=== PATIENT | female | born 1955 | race Caucasian/White ===

== ENCOUNTER 2022-02-18 09:23 | Outpatient (CLI) | payer MEDICARE, SELFPAY ==
--- NOTE | 2022-02-18 09:29 | ECG_ITS ---
Measurements Intervals [place] Rate: 85 P: 52 NC: 154 QRS: -18 QRSD: 93 T: 12 QT: 347 QTc: 414 Interpretive Statements SINUS RHYTHM LOW QRS VOLTAGE IN PRECORDIAL LEADS [QRS DEFLECTION < 1.0 mV IN CHEST LEADS] NO PREVIOUS ECG AVAILABLE FOR COMPARISON Electronically Signed On 02-18-2022 13:23:37 CONFERENCE PRODUCER by Guerrero Trejo M.D.
== END 2022-02-18 09:24 | disposition home or self-care (01) ==
PROVIDERS: Visit Provider Neurological Surgery
DX: M43.06 Spondylolysis, lumbar region (principal); Z01.818 Encounter for other preprocedural examination
CPT/HCPCS: 36415; 86850; 86900; 86901; 93005

== ENCOUNTER 2022-03-19 01:05 | Day surgery (SDC) | payer MEDICARE, SELFPAY ==
[2022-02-11 14:39] VITALS: BMI 31.8
--- NOTE | 2022-02-11 15:11 | PC.NURSE ---
Addendum entered by Ally Martinez RN 03/13/22 10:54: PT TO ARRIVE AT 0600 ON 03/19/22 FOR SURGERY AT 0800. LAST DOSE OF VITAMINS 03/15/22. Original Note: PRE-OP INSTRUCTIONS, PLEASE READ CAREFULLY Report to the Outpatient Waiting Room, entrance under the green pavilion located off [facility], at time _0600_ on date _02/26/22_. Planned Procedure Time: _0730_. PACK A SMALL OVERNIGHT BAG AND LEAVE IN THE CAR Time changes happen often and if your time is changed the preop area will call you the afternoon before. - You and your visitor will be asked to self-screen and do not enter if you have any COVID symptoms. - Only one visitor is requested with a max of two and NO children visitors are allowed at this time. - The patient visitor may be requested to leave or wait in car when not with patient due to distancing restrictions. - A mask is required within the hospital. -VISITING HOURS 8AM-8PM Patients may have clear liquids (water, carbonated beverages, clear teas, apple juice) until 3 hours prior to surgery (0430 AM) with a maximum of 20 ounces. - No food from midnight until time of surgery Take the following medications with a SIP of water the morning of surgery: _NONE_ Medications to discontinue per ANESTHESIA - _MULTIVITAMIN, OSTEO BI-FLEX, PRESERVISION 3 DAYS PRIOR TO SURGERY, Date to take last dose 02/22/22_ Please no make-up, nail estonian, hairspray, perfume, deodorant, or body powder the day of surgery. No jewelry (including any body piercings) or valuables the day of surgery, leave them at home. Please take a shower or bath the night before, or the morning of, surgery with an antibacterial soap. Wear comfortable, loose fitting clothing. - Jewelry must be removed prior to entering the operating room. Rings and piercings that are not removed may be cut off. - The hospital will not accept responsibility for valuables. - Please leave all valuables, including medications, at home the day of surgery. If you are going home after surgery, a licensed set key driver must drive you home. - NO public transportation without another adult if you receive anesthesia. - We recommend that an adult stay with you for 24 hours following discharge. - We also recommend that you do not drive, make important decision, drink alcoholic beverages, or take any drugs that were not prescribed by your health care provider for at least 24 hours after your discharge time. Follow any additional instructions given to you from your surgeon. If you or anyone in your household have experienced Covid symptoms in the past week, please notify your surgeon or the nurse liaison at the phone number below for possible testing. Telephone instructions given to _PATIENT_and asked if any additional questions and then verbalized understanding. Patient advised to call surgeon office or pre surgery nurse liaison [phone] if any additional questions.
--- NOTE | 2022-02-25 12:54 | WPDANESEPPF ---
Anes - Initial Pre Proc Eval Procedure: Operation Date: 02/26/22 07:30 Proposed Procedures p L4-5 Posterior Lumbar Interbody Fusion - Vijay Ramírez MD s Right L2-3 Nick-Laminectomy - Vijay Ramírez MD Date/Time: 02/25/22 12:54 Surgeon: Vijay Ramírez MD Pre Op Diagnosis: lumbar spondylolisthesis,lumbar stenosis Patient Data Age: 67 Gender: F Height: 1.61 m Weight: 82.72 kg Allergies Allergy/AdvReac Type Severity Reaction Status Date / Time codeine AdvReac Nausea Verified 02/11/22 14:28 erythromycin base AdvReac Nausea Verified 02/11/22 15:17 morphine AdvReac Nausea Verified 02/11/22 14:28 Home Medications Medication Instructions Recorded Confirmed Type calcium citrate 315 mg-vitamin D3 2 tablet PO DAILY 02/11/22 02/11/22 History 5 mcg (200 unit) tablet (Calcium Citrate + D) cyanocobalamin (vitamin B-12) 500 500 mcg PO DAILY 02/11/22 02/11/22 History mcg tablet (Vitamin B-12) diphenhydramine HCl 25 mg capsule 25 mg PO HS PRN Sleep 02/11/22 02/11/22 History (Benadryl) fluticasone propionate 50 2 spray intranasal DAILY 02/11/22 02/11/22 History mcg/actuation nasal spray,suspension (Flonase Allergy Relief) glucosamine 750 id-ncwrkfsrmez-hbh 2 tablet PO DAILY 02/11/22 02/11/22 History no1 644 mg-C 30 mg-mary 1 mg tablet (Osteo Bi-Flex Triple Strength) hydrocodone 5 mg-acetaminophen 325 1 tablet HS 02/11/22 02/11/22 History mg tablet loratadine 10 mg tablet (Claritin) 10 mg PO HS PRN Congestion 02/11/22 02/11/22 History multivitamin 1 tablet PO DAILY 02/11/22 02/11/22 History pantoprazole 40 mg tablet,delayed 40 mg PO DAILY 02/11/22 02/11/22 History release sennosides 17.2 mg tablet (Senokot 34.4 mg PO HS PRN CONSTIPAION 02/11/22 02/11/22 History Extra Strength) vit C 250 mg-vit E 90 mg-zinc 40 1 tablet PO DAILY 02/11/22 02/11/22 History mg-copper 1 nn-ancobq-ykrwhb capsule (PreserVision AREDS-2) ECG: Date of Service: 02/18/22 Procedure(s): CA 12 lead EKG Accession Number(s): [id number] cc: ~ ? Measurements Intervals? [place]? Rate: ? 85 ? P:? 52 CO: ? 154? QRS:? -18 QRSD: ? 93 ? T:? 12 QT: ? 347? QTc:? 414? Interpretive Statements SINUS RHYTHM LOW QRS VOLTAGE IN PRECORDIAL LEADS [QRS DEFLECTION < 1.0 mV IN CHEST LEADS] NO PREVIOUS ECG AVAILABLE FOR COMPARISON Electronically Signed On 02-18-2022 13:23:37 DRY PLASTERER HELPER by Guerrero Trejo M.D. Results Review: All pre-operative results and documents have been reviewed as part of the pre-operative evaluation. 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 Informed Consent: The patient's anesthetic plan and its attendant risks and benefits were discussed with the patient/fa
--- NOTE | 2022-03-13 10:54 | PC.NURSE ---
Pt states no changes in medications or health history since initial interview. New pre-op instructions reviewed with pt. Pt denies further questions at this time.
--- NOTE | 2022-03-18 09:05 | WPDANESEPPF ---
Anes - Initial Pre Proc Eval Procedure: Operation Date: 03/19/22 08:00 Proposed Procedures p L4-5 Posterior Lumbar Interbody Fusion - Vijay Ramírez MD s Right L2-3 Nick-Laminectomy - Vijay Ramírez MD Date/Time: 03/18/22 09:05 Surgeon: Vijay Ramírez MD Pre Op Diagnosis: lumbar spondylolisthesis,lumbar stenosis Patient Data Age: 67 Gender: F Height: 1.61 m Weight: 82.72 kg Allergies Allergy/AdvReac Type Severity Reaction Status Date / Time codeine AdvReac Nausea Verified 03/13/22 10:55 erythromycin base AdvReac Nausea Verified 03/13/22 10:55 morphine AdvReac Nausea Verified 03/13/22 10:55 Home Medications Medication Instructions Recorded Confirmed Type calcium citrate 315 mg-vitamin D3 2 tablet PO DAILY 02/11/22 03/13/22 History 5 mcg (200 unit) tablet (Calcium Citrate + D) cyanocobalamin (vitamin B-12) 500 500 mcg PO DAILY 02/11/22 03/13/22 History mcg tablet (Vitamin B-12) diphenhydramine HCl 25 mg capsule 25 mg PO HS PRN Sleep 02/11/22 03/13/22 History (Benadryl) fluticasone propionate 50 2 spray intranasal DAILY 02/11/22 03/13/22 History mcg/actuation nasal spray,suspension (Flonase Allergy Relief) glucosamine 750 au-edtijsdestv-qvi 2 tablet PO DAILY 02/11/22 03/13/22 History no1 644 mg-C 30 mg-mary 1 mg tablet (Osteo Bi-Flex Triple Strength) hydrocodone 5 mg-acetaminophen 325 1 tablet HS 02/11/22 03/13/22 History mg tablet loratadine 10 mg tablet (Claritin) 10 mg PO HS PRN Congestion 02/11/22 03/13/22 History multivitamin 1 tablet PO DAILY 02/11/22 03/13/22 History pantoprazole 40 mg tablet,delayed 40 mg PO DAILY 02/11/22 03/13/22 History release sennosides 17.2 mg tablet (Senokot 34.4 mg PO HS PRN CONSTIPAION 02/11/22 03/13/22 History Extra Strength) vit C 250 mg-vit E 90 mg-zinc 40 1 tablet PO DAILY 02/11/22 03/13/22 History mg-copper 1 pz-bujwjf-eykass capsule (PreserVision AREDS-2) Patient hx anesthesia problems: none Family hx anesthesia problems: none Results Review: All pre-operative results and documents have been reviewed as part of the pre-operative evaluation. 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 NAIR'S ESOPHAGUS Substance use: never Substance use type: does not use Living arrangements: with family Spiritual care concerns: No Anes - Eval Final PreProcedure Day of Procedure 03/18/22 09:05 Patient weight: obese Heart: regular rate and rhythm Lungs: clear to auscultation and normal air movement Airway: Mallampati scale class II Neurological: alert and oriented Last oral intake: >/= 8 hours ASA classification: III Emergent: no Anesthetic plan: proceed Anesthesia type and monitoring: general ETT Results Review: All pre-operative results and documents have been reviewed as part of the pre-operative evaluation. Informed Consent: The patient's anesthetic plan and its attendant risks and benefits were discussed with the patient/family/POA. Questions were solicited and answers provided to the satisfaction of the patient/family/POA.
[2022-03-19] VITALS (14 sets, daily range): BP systolic 115–153; BP diastolic 50–99; PULSE 81–108; RESP 10–21; TEMP 36.2–36.9; O2SAT 93–100
--- NOTE | ~2022-03-19 | XR_ITS ---
EXAMINATION: XR fluoroscopy no charge DATE: 03/19/2022 11:20 INDICATION: Lumbar fusion TECHNIQUE: A lateral fluoroscopic spot image of the lower lumbar spine was obtained during procedure performed by Dr. Ramírez. Radiologist was not present for the imaging or procedure. The amount of fl uoroscopy time used during this procedure was 0.1 minutes. COMPARISON: None. FINDINGS: Images demonstrate placement of an interbody fusion device for anterior spinal fusion at L4 -L5 there has also been placement of bilateral pedicle screws at both of these levels for instrumente d posterior spinal fusion. Retractors project over a lucent likely operative defect posterior to L4 a nd L5. IMPRESSION: 1. Fluoroscopy utilized during a combined instrumented L4-L5 anterior and posterior spinal fusion. Se e procedure note for further detail. Reviewed, dictated and finalized at location L. EY STRIPPER IMPRESSION: 1. Fluoroscopy utilized during a combined instrumented L4-L5 anterior and poste rior spinal fusion. See procedure note for further detail.
[2022-03-19] MEDS: LACTATED RINGERS 1,000 ML 30 ML IV CONT ×2 (06:55→11:40)
--- NOTE | 2022-03-19 07:37 | PM.IMHP ---
H&P: HPI History of Present Illness Date/Time: 03/19/22 07:37 Chief Complaint: Back and leg pain Narrative: Annmarie is a 67-year-old female with back and leg pain related to listhesis and stenosis at L4-5 and lateral recess stenosis at L2-3 presents for decompression at L2-3 and decompression plus fusion at L4-5. She has not changed appreciably since we last saw her. Most of her discomfort is on the right. She is not having bowel or bladder difficulty. She does not have specific muscle group weakness or dermatomal numbness but occasionally her leg gives out. Review of Systems Review of Systems: Patient denies shortness of breath, cough, fever, chills, nausea, vomiting, weight loss, weight gain, chest pain, dysuria. She has back and leg pain as above. She has stiffness. Review systems is otherwise negative on 12 systems except as noted elsewhere. 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 NAIR'S ESOPHAGUS Substance use: never Substance use type: does not use Living arrangements: with family Spiritual care concerns: No Meds Home Medications and Allergies Home Medications Medication Instructions Recorded Confirmed Type calcium citrate 315 mg-vitamin D3 2 tablet PO DAILY 02/11/22 03/19/22 History 5 mcg (200 unit) tablet (Calcium Citrate + D) cyanocobalamin (vitamin B-12) 500 500 mcg PO DAILY 02/11/22 03/19/22 History mcg tablet (Vitamin B-12) diphenhydramine HCl 25 mg capsule 25 mg PO HS PRN Sleep 02/11/22 03/19/22 History (Benadryl) fluticasone propionate 50 2 spray intranasal DAILY 02/11/22 03/19/22 History mcg/actuation nasal spray,suspension (Flonase Allergy Relief) glucosamine 750 ud-vizefrzirlj-nxu 2 tablet PO DAILY 02/11/22 03/19/22 History no1 644 mg-C 30 mg-mary 1 mg tablet (Osteo Bi-Flex Triple Strength) hydrocodone 5 mg-acetaminophen 325 1 tablet HS 02/11/22 03/19/22 History mg tablet loratadine 10 mg tablet (Claritin) 10 mg PO HS PRN Congestion 02/11/22 03/19/22 History multivitamin 1 tablet PO DAILY 02/11/22 03/19/22 History pantoprazole 40 mg tablet,delayed 40 mg PO DAILY 02/11/22 03/19/22 History release sennosides 17.2 mg tablet (Senokot 34.4 mg PO HS PRN CONSTIPAION 02/11/22 03/19/22 History Extra Strength) vit C 250 mg-vit E 90 mg-zinc 40 1 tablet PO DAILY 02/11/22 03/19/22 History mg-copper 1 ey-yfhhan-dficmd capsule (PreserVision AREDS-2) Allergies Allergy/AdvReac Type Severity Reaction Status Date / Time codeine AdvReac Nausea Verified 03/19/22 07:36 erythromycin base AdvReac Nausea Verified 03/19/22 07:36 morphine AdvReac Nausea Verified 03/19/22 07:36 Vital Signs Vital Signs - 24 hr 03/19/22 06:27 Temperature 97.5 F L Pulse Rate 81 Respiratory Rate 18 Blood Pressure 153/80 H Pulse Oximetry 99 Oxygen Delivery Room Air Exam Narrative: Strength is normal the bilateral lower extremities to direct confrontation. Sensation is intact to light touch throughout the lower extremities. Breathing is unlabored. She speaks in complete sentences without difficulty. Regular rate and rhythm Assessment and Plan Assessment and plan (1) Lumbar spondylosis: Code(s): M47.816 - Spondylosis without myelopathy or radiculopathy, lumbar region Status: Acute Plan Annmarie is a 67-year-old female who presents for L2-3 hemilaminectomy and L4-5 posterior lumbar interbody fusion. I described to her again that operation, its risks, potential benefits, the operative and postoperative course in detail and answ
--- NOTE | 2022-03-19 07:41 | WPDHPUPDATE1 ---
History and Physical Update Update Date/Time: 03/19/22 07:41 History and Physical has been reviewed, including an updated exam of the patient. There are NO changes in the patient's condition. Risks, benefits, and alternatives have been discussed and questions answered. Patient agrees to proceed with procedure.
--- NOTE | 2022-03-19 07:50 | SUR.PREOP ---
7033 PT TO NUCLEAR MEDICINE PER W/C
[2022-03-19] MEDS: ceFAZolin 2 GM/D5W 50 ML 2 GM/50 ML BAG IVPB (08:17)
[2022-03-19] MEDS: BUPIVACAINE/EPINEPHRINE 0.5% 30 ML VIAL INFILTRATE (09:12)
[2022-03-19] MEDS: fentaNYL CITRATE INJ (*CRX) 100 MCG/2 ML VIAL 25 MCG IV PUSH ×6 (11:55→12:35)
[2022-03-19] MEDS: KETAMINE HCL (*CRX) 500 MG/10 ML VIAL 10 MG IV PUSH (12:34)
[2022-03-19] MEDS: HYDROmorphone HCL INJ (*CRX) 1 MG/ML SYR 0.5 MG IV PUSH ×3 (12:47→16:54)
--- NOTE | 2022-03-19 13:45 | ADMGEN ---
This patient, Annmarie Ludwig, was admitted to 2 Medical Room 255-. Patient/family oriented to hospital policies and general routines including ID bracelet, bed and alarms, visiting hours, pain management, procedures, bathroom and other care routines, personal items, smoking policy, room service/diet, and visiting hours. Information on how to activate the Rapid Response Team has been discussed. Patient/Family are encouraged to report perceived risks to care and to ask questions if they do not understand what they are told or what they should do.
[2022-03-19] MEDS: ONDANSETRON INJ 4 MG/2 ML VIAL IV PUSH (15:33)
[2022-03-19] MEDS: KCL 20 MEQ/D5/0.45% SOD CHL 1,000 ML 100 ML IV CONT (16:49)
[2022-03-19] MEDS: SCOPOLAMINE 1.5 MG PATCH TRANSDERM (20:09)
[2022-03-19] MEDS: diazePAM (*CRX) 5 MG TABLET PO (20:13)
[2022-03-19] MEDS: HYDROcodone/acetaminophen (*CRX) 5-325 MG TABLET 1 TAB PO (20:13)
[2022-03-19] MEDS: DOCUSATE SODIUM 100 MG CAPSULE PO (20:28)
[2022-03-19] MEDS: HYDROcodone/acetaminophen (*CRX) 10-325 MG TABLET 1 TAB PO (23:54)
[2022-03-20] VITALS (7 sets, daily range): BP systolic 102–144; BP diastolic 45–78; PULSE 75–93; RESP 14–17; TEMP 36.4–37.1; O2SAT 95–100
[2022-03-20] MEDS: HYDROcodone/acetaminophen (*CRX) 10-325 MG TABLET 1 TAB PO ×4 (05:04→20:09)
[2022-03-20] MEDS: OPTI-GEN TAB 1 TABLET PO (08:03)
[2022-03-20] MEDS: FLUTICASONE PROPIONATE 0.05% NA SPR 16 GM BTL (*BKC) 2 SPRAY NASAL (08:03)
[2022-03-20] MEDS: DOCUSATE SODIUM 100 MG CAPSULE PO ×2 (08:03→20:03)
[2022-03-20] MEDS: PANTOPRAZOLE 40 MG TABLET PO (08:03)
[2022-03-20] MEDS: CYANOCOBALAMIN 500 MCG TABLET PO (08:03)
[2022-03-20] MEDS: MULTIVITAMINS THERAPEUTIC TAB (*BKC) 1 TABLET PO (08:03)
--- NOTE | 2022-03-20 16:03 | WPDANESPN ---
Anes - Prog Note Post-Op Date/Time: 03/20/22 16:03 Cardiovascular status: normal Respiratory status: normal Airway patency: baseline Mental status: baseline Post-Op hydration status: normal Vital Signs: Last Vital Signs Temp 37.1 C 03/20/22 08:56 Pulse 90 03/20/22 08:56 Resp 16 03/20/22 08:56 BP 102/78 03/20/22 08:56 Pulse Ox 95 03/20/22 08:56 O2 Del Method Room Air 03/20/22 07:51 O2 Flow Rate 3 03/19/22 13:10 Pain Score (VAS): 410 I/O: Intake & Output 03/20/22 03/20/22 03/20/22 07:59 15:59 23:59 Intake Total 1170 770 Output Total 1310 Balance -140 770 Post-procedural complaints: nausea (throughout the night, but has resolved this morning ) Patient Feedback: Patient satisfied with anesthetic care.
[2022-03-20] MEDS: KCL 20 MEQ/D5/0.45% SOD CHL 1,000 ML 30 ML IV CONT (20:22)
--- NOTE | 2022-03-20 21:59 | WPDNEUROSGPN ---
Progress Note: A&P Assessment and Plan (1) Lumbar spondylosis: Code(s): M47.816 - Spondylosis without myelopathy or radiculopathy, lumbar region Status: Acute (2) Lumbar radiculopathy: Code(s): M54.16 - Radiculopathy, lumbar region Status: Acute Plan Annmarie is doing well. She will continue to work with Physical and Occupational therapy towards independent transfers and ambulation will likely be discharged tomorrow. Subjective Date/time seen: 03/20/22 21:59 Interval history: Annmarie is postop day 1 status post L4-5 posterior lumbar interbody fusion and right L2-3 hemilaminectomy. She is doing fairly well from standpoint of the operation. She persists in having some right leg pain. The pain medication seems to be working and she is advancing towards independent transfers and ambulation. She is not having new bowel or bladder difficulty or new muscle group weakness of either lower extremity. Exam Narrative: Strength is 5/5 in all muscle groups of the bilateral lower extremities. Sensation is intact to light touch throughout the lower extremities. Her dressing is clean, dry and intact. Objective Data Vital Signs Vital Signs: Vital Signs - 24 hr 03/20/22 00:17 03/20/22 05:34 03/20/22 07:51 Temperature 97.6 F 97.7 F Pulse Rate 88 93 Respiratory Rate 14 16 Blood Pressure 144/71 H 117/60 Pulse Oximetry 98 96 Oxygen Delivery Room Air 03/20/22 08:56 03/20/22 14:40 03/20/22 17:53 Temperature 98.7 F 97.9 F 97.6 F Pulse Rate 90 85 75 Respiratory Rate 16 16 17 Blood Pressure 102/78 111/59 L 117/45 L Pulse Oximetry 95 100 100 Oxygen Delivery 03/20/22 20:58 Temperature 98.7 F Pulse Rate 76 Respiratory Rate 16 Blood Pressure 115/65 Pulse Oximetry 98 Oxygen Delivery Intake/Output Intake/Output: Intake & Output 03/17/22 03/18/22 03/19/22 03/20/22 23:59 23:59 23:59 23:59 Intake Total 1190 5710 Output Total 330 1695 Balance 860 4015 Meds/Results Medications: Active Medications Generic Name Dose Route Start Last Admin Trade Name Freq PRN Reason Stop Dose Admin Hydrocodone Bitart/Acetaminophen 1 tab 03/19/22 13:41 03/19/22 20:13 Hydrocodone/Acetaminophen (*Crx) 5-325 Mg Tablet PO 1 tab Q4H PRN Administration Mild Pain (1-3) Hydrocodone Bitart/Acetaminophen 1 tab 03/19/22 13:41 03/20/22 20:09 Hydrocodone/Acetaminophen (*Crx) 10-325 Mg Tablet PO 1 tab Q4H PRN Administration Moderate Pain (4-6) Al Hydrox/Mg Hydrox/Simethicone 20 ml 03/19/22 13:41 Mag Hydrox/Al Hydrox/Simeth 30 Ml Udc PO Q4H PRN Indigestion/Heartburn Bisacodyl 10 mg 03/19/22 13:41 Bisacodyl 10 Mg Suppository RECTAL DAILY PRN Constipation Calcium Citrate 2 tablet 03/20/22 09:00 03/20/22 08:03 Calcium Citrate 315 Mg/Vitamin D 250 Units Tab PO 2 tablet DAILY MORGAN Administration Cyanocobalamin 500 mcg 03/20/22 09:00 03/20/22 08:03 Cyanocobalamin 500 Mcg Tablet PO 500 mcg DAILY MORGAN Administration Cyclobenzaprine HCl 10 mg 03/19/22 13:41 Cyclobenzaprine Hcl 10 Mg Tablet PO TID PRN Muscle Spasms Diazepam 5 mg 03/19/22 19:42 03/19/22 20:13 Diazepam (*Crx) 5 Mg Tablet PO 5 mg BID PRN Administration Anxiety Diphenhydramine HCl 25 mg 03/19/22 13:41 Diphenhydramine Hcl Cap 25 Mg Capsule PO HS PRN Sleep Docusate Sodium 100 mg 03/19/22 21:00 03/20/22 20:03 Docusate Sodium 100 Mg Capsule PO 100 mg Q12HR MORGAN Administration Fluticasone Propionate 2 spray 03/20/22 09:00 03/20/22 08:03 Fluticasone Propionate 0.05% Na Spr 16 Gm Btl (*Bkc) NASAL 2 spray DAILY MORGAN Administration Hydromorphone HCl 0.5 mg 03/19/22 13:41 03/19/22 16:54 Hydromorphone Hcl Inj (*Crx) 1 Mg/Ml Syr IV PUSH 0.5 mg Q2H PRN Administration Pain Rated 7-10 Potassium Chloride/Dextrose/Sod Cl 1,000 mls @ 100 mls/hr 03/19/22 13:41 03/20/22 20:22 Chidi
[2022-03-21] VITALS (7 sets, daily range): BP systolic 115–135; BP diastolic 56–67; PULSE 69–102; RESP 16–21; TEMP 36.4–38.3; O2SAT 97–100
[2022-03-21] MEDS: HYDROcodone/acetaminophen (*CRX) 10-325 MG TABLET 1 TAB PO ×5 (01:27→22:03)
[2022-03-21] MEDS: PANTOPRAZOLE 40 MG TABLET PO (06:12)
[2022-03-21] MEDS: MULTIVITAMINS THERAPEUTIC TAB (*BKC) 1 TABLET PO (08:19)
[2022-03-21] MEDS: CYANOCOBALAMIN 500 MCG TABLET PO (08:19)
[2022-03-21] MEDS: DOCUSATE SODIUM 100 MG CAPSULE PO ×2 (08:19→20:43)
[2022-03-21] MEDS: FLUTICASONE PROPIONATE 0.05% NA SPR 16 GM BTL (*BKC) 2 SPRAY NASAL (08:19)
[2022-03-21] MEDS: OPTI-GEN TAB 1 TABLET PO (08:19)
--- NOTE | 2022-03-21 13:32 | WPDNEUROSGPN ---
Progress Note: A&P Assessment and Plan (1) Lumbar spondylosis: Code(s): M47.816 - Spondylosis without myelopathy or radiculopathy, lumbar region Status: Acute (2) Lumbar radiculopathy: Code(s): M54.16 - Radiculopathy, lumbar region Status: Acute (3) Status post lumbar spinal fusion: Code(s): Z98.1 - Arthrodesis status Status: Acute Plan Ms. Ludwig is overall doing well after her lumbar surgery on . Her back pain is pretty significant today, although it is being controlled with pain medications. She has requested to stay another day which I think is reasonable. I have encouraged her to be up in a chair and to walk to help with her pain and mobility. I expect she will discharge home tomorrow. Subjective Date/time seen: 03/21/22 13:32 Interval history: Patient states her back pain is worse today than yesterday. She was able to walk in the halls with therapy this morning. She does have some pain and paresthesias into the right thigh which was present before surgery as well; however, this is improved since . Voiding without difficulty and passing gas but has not yet had BM. Exam Narrative: AOx4 Lumbar incision is c/d/i Full strength in lower extremities Sensation intact Objective Data Vital Signs Vital Signs: Vital Signs - 24 hr 03/20/22 14:40 03/20/22 17:53 03/20/22 20:58 Temperature 97.9 F 97.6 F 98.7 F Pulse Rate 85 75 76 Respiratory Rate 16 17 16 Blood Pressure 111/59 L 117/45 L 115/65 Pulse Oximetry 100 100 98 Oxygen Delivery 03/20/22 20:00 03/21/22 00:03 03/21/22 05:01 Temperature 97.8 F 97.6 F Pulse Rate 76 69 71 Respiratory Rate 16 16 16 Blood Pressure 127/58 L 121/64 Pulse Oximetry 98 99 100 Oxygen Delivery Room Air 03/21/22 07:33 03/21/22 10:00 Temperature 98.5 F Pulse Rate 99 Respiratory Rate 16 Blood Pressure 115/56 L Pulse Oximetry 97 Oxygen Delivery Room Air Intake/Output Intake/Output: Intake & Output 03/18/22 03/19/22 03/20/22 03/21/22 23:59 23:59 23:59 23:59 Intake Total 1190 5710 590 Output Total 330 9105 Balance 860 4015 590 Meds/Results Medications: Active Medications Generic Name Dose Route Start Last Admin Trade Name Freq PRN Reason Stop Dose Admin Hydrocodone Bitart/Acetaminophen 1 tab 03/19/22 13:41 03/19/22 20:13 Hydrocodone/Acetaminophen (*Crx) 5-325 Mg Tablet PO 1 tab Q4H PRN Administration Mild Pain (1-3) Hydrocodone Bitart/Acetaminophen 1 tab 03/19/22 13:41 03/21/22 11:21 Hydrocodone/Acetaminophen (*Crx) 10-325 Mg Tablet PO 1 tab Q4H PRN Administration Moderate Pain (4-6) Al Hydrox/Mg Hydrox/Simethicone 20 ml 03/19/22 13:41 Mag Hydrox/Al Hydrox/Simeth 30 Ml Udc PO Q4H PRN Indigestion/Heartburn Bisacodyl 10 mg 03/19/22 13:41 Bisacodyl 10 Mg Suppository RECTAL DAILY PRN Constipation Calcium Citrate 2 tablet 03/20/22 09:00 03/21/22 08:19 Calcium Citrate 315 Mg/Vitamin D 250 Units Tab PO 2 tablet DAILY MORGAN Administration Cyanocobalamin 500 mcg 03/20/22 09:00 03/21/22 08:19 Cyanocobalamin 500 Mcg Tablet PO 500 mcg DAILY MORGAN Administration Cyclobenzaprine HCl 10 mg 03/19/22 13:41 Cyclobenzaprine Hcl 10 Mg Tablet PO TID PRN Muscle Spasms Diazepam 5 mg 03/19/22 19:42 03/19/22 20:13 Diazepam (*Crx) 5 Mg Tablet PO 5 mg BID PRN Administration Anxiety Diphenhydramine HCl 25 mg 03/19/22 13:41 Diphenhydramine Hcl Cap 25 Mg Capsule PO HS PRN Sleep Docusate Sodium 100 mg 03/19/22 21:00 03/21/22 08:19 Docusate Sodium 100 Mg Capsule PO 100 mg Q12HR MORGAN Administration Fluticasone Propionate 2 spray 03/20/22 09:00 03/21/22 08:19 Fluticasone Propionate 0.05% Na Spr 16 Gm Btl (*Bkc) NASAL 2 spray DAILY MORGAN Administration Hydromorphone HCl 0.5 mg 03/19/22 13:41 03/19/22 16:54 Hydromorphone Hcl Inj (*Crx) 1 Mg/Ml Syr IV PUSH 0.5 mg
[2022-03-21] MEDS: BISACODYL 10 MG SUPPOSITORY RECTAL (16:46)
[2022-03-22 02:17] VITALS: BP 123/78; PULSE 105; RESP 20; TEMP 37.3; O2SAT 98
[2022-03-22 06:00] VITALS: BP 141/68; PULSE 99; RESP 18; TEMP 37.8; O2SAT 97
[2022-03-22] MEDS: KCL 20 MEQ/D5/0.45% SOD CHL 1,000 ML 30 ML IV CONT (06:06)
[2022-03-22] MEDS: HYDROcodone/acetaminophen (*CRX) 10-325 MG TABLET 1 TAB PO ×2 (06:08→12:21)
[2022-03-22] MEDS: FLUTICASONE PROPIONATE 0.05% NA SPR 16 GM BTL (*BKC) 2 SPRAY NASAL (08:19)
[2022-03-22] MEDS: CYANOCOBALAMIN 500 MCG TABLET PO (08:20)
[2022-03-22] MEDS: OPTI-GEN TAB 1 TABLET PO (08:20)
[2022-03-22] MEDS: MULTIVITAMINS THERAPEUTIC TAB (*BKC) 1 TABLET PO (08:20)
[2022-03-22] MEDS: PANTOPRAZOLE 40 MG TABLET PO (08:20)
[2022-03-22] MEDS: DOCUSATE SODIUM 100 MG CAPSULE PO (08:20)
[2022-03-22 10:08] VITALS: BP 139/67; PULSE 87; RESP 16; TEMP 36.3; O2SAT 96
--- NOTE | 2022-03-22 14:41 | WPDNEUROSGPN ---
Progress Note: A&P Assessment and Plan (1) Status post lumbar spinal fusion: Code(s): Z98.1 - Arthrodesis status Status: Acute Plan Ms. Ludwig is better today with respect to pain and feels ready to go home. Her incision is healing well. She has been ambulating and tolerating PO. She is clear to discharge today from my perspective. She has follow up scheduled with Dr. Ramírez in 6 weeks. Subjective Date/time seen: 03/22/22 14:41 Interval history: Had 2 episodes of vomiting this morning after taking medication but feeling much better this afternoon. Tolerating PO. Ambulated with therapy. Thinks her back pain is better today and is ready to go home Exam Narrative: Incision c/d/i Full strength in lower extremities Sensation intact to light touch Objective Data Vital Signs Vital Signs: Vital Signs - 24 hr 03/21/22 18:00 03/21/22 18:39 03/21/22 20:00 Temperature 100.0 F H 99.0 F Pulse Rate 97 Respiratory Rate 16 Blood Pressure 125/56 L Pulse Oximetry 99 Oxygen Delivery Room Air 03/21/22 22:16 03/22/22 02:17 03/22/22 06:00 Temperature 101.0 F H 99.2 F 100.1 F H Pulse Rate 102 H 105 H 99 Respiratory Rate 21 H 20 18 Blood Pressure 135/67 123/78 141/68 H Pulse Oximetry 100 98 97 Oxygen Delivery 03/22/22 08:19 03/22/22 10:08 Temperature 97.4 F L Pulse Rate 87 Respiratory Rate 16 Blood Pressure 139/67 Pulse Oximetry 96 Oxygen Delivery Room Air Intake/Output Intake/Output: Intake & Output 03/19/22 03/20/22 03/21/22 03/22/22 23:59 23:59 23:59 23:59 Intake Total 1190 5710 2030 2080 Output Total 330 1695 1300 Balance 860 4015 2030 780 Meds/Results Medications: Active Medications Generic Name Dose Route Start Last Admin Trade Name Freq PRN Reason Stop Dose Admin Hydrocodone Bitart/Acetaminophen 1 tab 03/19/22 13:41 03/19/22 20:13 Hydrocodone/Acetaminophen (*Crx) 5-325 Mg Tablet PO 1 tab Q4H PRN Administration Mild Pain (1-3) Hydrocodone Bitart/Acetaminophen 1 tab 03/19/22 13:41 03/22/22 12:21 Hydrocodone/Acetaminophen (*Crx) 10-325 Mg Tablet PO 1 tab Q4H PRN Administration Moderate Pain (4-6) Al Hydrox/Mg Hydrox/Simethicone 20 ml 03/19/22 13:41 Mag Hydrox/Al Hydrox/Simeth 30 Ml Udc PO Q4H PRN Indigestion/Heartburn Bisacodyl 10 mg 03/19/22 13:41 03/21/22 16:46 Bisacodyl 10 Mg Suppository RECTAL 10 mg DAILY PRN Administration Constipation Calcium Citrate 2 tablet 03/20/22 09:00 03/22/22 08:20 Calcium Citrate 315 Mg/Vitamin D 250 Units Tab PO 2 tablet DAILY MORGAN Administration Cyanocobalamin 500 mcg 03/20/22 09:00 03/22/22 08:20 Cyanocobalamin 500 Mcg Tablet PO 500 mcg DAILY MORGAN Administration Cyclobenzaprine HCl 10 mg 03/19/22 13:41 Cyclobenzaprine Hcl 10 Mg Tablet PO TID PRN Muscle Spasms Diazepam 5 mg 03/19/22 19:42 03/19/22 20:13 Diazepam (*Crx) 5 Mg Tablet PO 5 mg BID PRN Administration Anxiety Diphenhydramine HCl 25 mg 03/19/22 13:41 Diphenhydramine Hcl Cap 25 Mg Capsule PO HS PRN Sleep Docusate Sodium 100 mg 03/19/22 21:00 03/22/22 08:20 Docusate Sodium 100 Mg Capsule PO 100 mg Q12HR MORGAN Administration Fluticasone Propionate 2 spray 03/20/22 09:00 03/22/22 08:19 Fluticasone Propionate 0.05% Na Spr 16 Gm Btl (*Bkc) NASAL 2 spray DAILY MORGAN Administration Hydromorphone HCl 0.5 mg 03/19/22 13:41 03/19/22 16:54 Hydromorphone Hcl Inj (*Crx) 1 Mg/Ml Syr IV PUSH 0.5 mg Q2H PRN Administration Pain Rated 7-10 Loratadine 10 mg 03/19/22 13:41 Loratadine 10 Mg Tablet PO HS PRN Congestion Multivitamins Therapeutic 1 tablet 03/20/22 09:00 03/22/22 08:20 Multivitamins Therapeutic Tab (*Bkc) PO 1 tablet DAILY MORGAN Administration Multivitamins/Minerals 1 tablet 03/20/22 09:00 03/22/22 08:20 Opti-Gen Tab PO 04/19/22 08:59 1 tablet DAILY MORGAN Administrati
[2022-03-22 14:42] VITALS: BP 118/52; PULSE 83; RESP 18; TEMP 36.7; O2SAT 93
--- NOTE | 2022-03-30 10:24 | W.PM.PROC2 ---
Procedure Note - Detailed Date of Procedure 03/30/22 Pre-op Diagnosis lumbar spondylolisthesis,lumbar stenosis Post-op Diagnosis Same Procedure Performed L4-5 complete laminectomy and bilateral facetectomy, L4-5 complete diskectomy and interbody arthrodesis utilizing peek interbody device and local autograft, posterolateral intertransverse fusion, L4-5 pedicle screw instrumentation, right L2-3 hemilaminectomy Surgeon Vijay Ramírez MD [employer] [facility] Anesthesia General Description of Procedure Annmarie was brought to the operating room in the supine position, was sedated, intubated and placed under general anesthesia in routine fashion. She was then turned into the prone position on an open Keron table. The area of operation on her back was examined, marked for incision, prepped and draped in routine sterile fashion. Incision was marked over the L2-3 spinous processes in the midline. This area was injected with 0.5% lidocaine with [id number] epinephrine. Intravenous antibiotics given prior to incision. Incision was made with a 10 blade scalpel down to the lumbodorsal fascia. A subperiosteal dissection of the muscle soft tissue away from spinous process lamina at L2-5 was performed with a subperiosteal elevator and Bovie cautery. A verifying x-rays obtained to verify the level of operation. The L4 spinous process was removed with a Darwin rongeur. Kerrison punches, curved curettes and a Leksell rongeur were used to remove the lamina in the midline and to the soft contents of the canal were encountered. A Midas Dano drill was used to resect the pars bilaterally at L4. The sleeve the L4 inferior articular process and facet could be removed bilaterally. These plus spinous process were stripped free of soft tissue and morselized for later use as interbody autograft. Kerrison punches and curved curettes were used to define a plane with the dura and removed bone ligament flush with the pedicle and through the foramina widely decompressing the exiting nerve roots. With the thecal sac retracted and protected the disc space was entered bilaterally using an 11 blade scalpel. Scrapers a very sizes, curettes of various configurations, pituitary rongeur and a rasp were used to remove as much cartilaginous endplate and disc material as possible down to bleeding cortical flat surfaces on the opposing bones. The disc space was incised and 9 mm interbody devices were chosen and filled with local autograft bone. The disc space was likewise filled with local autograft bone medially and anteriorly. The titanium interbody devices were then placed to a 2-3 mm countersink within the disc space bilaterally. The dissection was carried out over the lateral masses until the transverse processes were discovered at L4-L5. These were decorticated using a Midas Dano drill. The extra local autograft was packed against these decorticated surfaces for an intertransverse, posterolateral arthrodesis. Pedicle screw instrumentation was performed by observing and palpating the pedicle wall a hole was made in the superior articular process of the pedicle using a Midas Dano drill. Pedicle was then cannulated with a pedicle probe, checked for continuity with the ball probe, tapped with a 5.5 mm tap and a 6.5 x 50 mm screw was placed into each pedicle on each side. Rods were placed in the screw heads on either side and secured in position using the caps for that purpose. These were definitively tightened with a torque and anti torque device. A verifying x-rays obtained to verify good position of the instrumentation which was confirmed. Hemilaminectomy was performed on the right using a Midas Dano drill. A medial facetectomy was also performed. The yellow ligament was lifted and removed piecemeal using Kerrison punches. In the lateral epidural space the ligament was lifted and removed piecemeal using Kerrison punches removing any excess or overgrown bone as well. These maneuver
== END 2022-03-22 15:32 | disposition home or self-care (01) ==
LOC: ANHSURGERY 06:21 → ANH2MED 13:48
PROVIDERS: Visit Provider Neurological Surgery
PROC: (CPT 22612; principal; 2022-03-19 08:00)
PROC: (CPT 63005; 2022-03-19 08:00)
DX: M47.26 Other spondylosis with radiculopathy, lumbar region (principal); M48.061 Spinal stenosis, lumbar region without neurogenic claudication; K21.9 Gastro-esophageal reflux disease without esophagitis; Z79.891 Long term (current) use of opiate analgesic; E66.9 Obesity, unspecified; Z68.31 Body mass index [BMI] 31.0-31.9, adult
CPT/HCPCS: 63052; 22633; 22853; 20936; 22840; 36415; 86850; 86900; 86901; 93005; 97116; 97161; 97165; 97530; 97535; 99199; A9270; C1713; J0330; J0690; J1100; J1170; J2250; J2405; J2704; J3010; J3480; J7120

== ENCOUNTER 2022-05-04 13:10 | Outpatient (CLI) | payer MEDICARE, SELFPAY ==
--- NOTE | ~2022-05-04 | XR_ITS ---
Lumbosacral Spine: AP and lateral views Clinical History: Postoperative Findings: No acute fracture identified. There is posterior fusion from L4 to L5 with bilateral rods a nd transpedicular screws present. Interbody fusion device present at the L4-L5 disc space. Grade 1 re trolisthesis of L3 over L4 measures approximately 4 mm. Retrolisthesis of L2 over L3 measures 8 mm. T here is severe degenerative disc narrowing at L1-L2 and L2-L3. The sacroiliac joints are normally out lined. Impression: Posterior fusion from L4 to L5, as detailed above. 8 mm retrolisthesis of L2 over L3. 4 mm retrolisthesis of L3 over L4. Severe degenerative disc narrowing at L1-L2 and L2-L3. Reviewed, dictated and finalized at location . Impression: Posterior fusion from L4 to L5, as detailed above. 8 mm retrolisthesis of L2 over L3. 4 mm retrolisthesis of L3 over L4. Severe degenerative disc narrowing at L1-L2 and L2-L3.
== END 2022-05-04 13:11 | disposition home or self-care (01) ==
PROVIDERS: Visit Provider Neurological Surgery
DX: Z98.1 Arthrodesis status (principal)
CPT/HCPCS: 72100

== ENCOUNTER → 2022-12-01 12:46 | Outpatient (CLI) | payer MEDICARE, SELFPAY ==
--- NOTE | ~2022-12-01 | MR_ITS ---
MRI of the lumbar spine Clinical History: Back pain Technique: Axial T2-weighted images, and sagittal T1-weighted, T2-weighted, and and T2 fat-sat images were acquired. Findings: No acute fracture identified. There is 7 mm retrolisthesis of L2 over L3. There is 4 mm ret rolisthesis of L3 over L4. There is posterior fusion from L4 to L5, with bilateral rods and transpedi cular screws present. L4 laminectomy defect is present. No suspicious bone marrow signal reality seen . At L1-L2, there is advanced degenerative disc narrowing. There is minimal disc bulge and mild facet a rthropathy. No central canal stenosis. There is minimal left neural foraminal narrowing. Right neural foramen preserved. At L2-L3, there is severe degenerative disc narrowing. There is severe facet arthropathy. There is mi nimal disc bulge. No central canal stenosis. There is moderate to advanced bilateral neural foraminal narrowing. At L3-L4, there is minimal disc bulge. There is advanced facet arthropathy. No central canal stenosis . There is moderate to advanced bilateral neural foraminal narrowing. At L4-L5, there is no significant disc bulge or herniation. There is advanced facet arthropathy. No c entral canal stenosis. Probable mild to moderate bilateral neural foraminal narrowing. At L5-S1, there is no disc bulge or herniation. There is moderate to advanced facet arthropathy. No c entral canal stenosis. There is mild bilateral neural foraminal narrowing. Paravertebral soft tissues are unremarkable. Impression: 7 mm retrolisthesis of L2 over L3. 4 mm retrolisthesis of L3 over L4. Postoperative change at the L4-L5 level, as detailed above. Moderate degenerative spondylosis, as above. Reviewed, dictated and finalized at [facility]. Impression: 7 mm retrolisthesis of L2 over L3. 4 mm retrolisthesis of L3 over L4. Postoperative change at the L4-L5 level, as detailed above. Moderate degenerative spondylosis, as above.
== END ==
PROVIDERS: PCP Neurological Surgery; Visit Provider Nurse Practitioner Family
DX: M47.896 Other spondylosis, lumbar region (principal)
CPT/HCPCS: 72148

== ENCOUNTER 2023-12-09 13:41 | Outpatient (CLI) | payer MEDICARE, SELFPAY ==
--- NOTE | ~2023-12-09 | MR_ITS ---
EXAMINATION: MR lumbar spine wo/w con DATE: 12/09/2023 14:52 INDICATION: Low back pain. Foraminal stenosis of lumbar region. TECHNIQUE: Magnetic resonance imaging (MRI) of the lumbar spine was performed without and with 17 mL MultiHance intravenous contrast. COMPARISON: Lumbar spine MRI 12/01/2022 FINDINGS: There is 3 mm retrolisthesis of L1 on L2, 7 mm retrolisthesis of L2 on L3, and 5 mm retroli sthesis of L3 on L4. There is 3 mm anterolisthesis of L4 on L5. There are changes of anterior and pos terior fusion procedures at L4-L5 with interbody devices and pedicle screws. There is mild chronic an terior wedging of T12-L2 vertebral bodies. There is severely decreased disc height at L1-L2 and L2-L3 and moderately decreased disc height at L3-L4. The distal spinal cord signal intensity is normal. Th e conus medullaris is at L1. The following disc levels are specifically discussed: L1-L2: The disc is bulging and has an annular fissure. There is mild bilateral facet joint osteoarthr itis. There is mild bilateral neural foraminal stenosis. There is no central canal stenosis. L2-L3: The disc does not extend beyond the endplate margin. There is mild bilateral facet joint osteo arthritis. There is mild bilateral neural foraminal stenosis. There is mild central canal stenosis. L3-L4: The disc is bulging. There is moderate right and mild left facet joint osteoarthritis. There i s moderate bilateral neural foraminal stenosis. There is mild central canal stenosis. L4-L5: There is mild bilateral facet joint hypertrophy. There is no neural foraminal stenosis. There is no central canal stenosis. There is posterior decompression. L5-S1: The disc is bulging and has an annular fissure. There is severe bilateral facet joint osteoart hritis. There is mild bilateral neural foraminal stenosis. There is mild central canal stenosis. IMPRESSION: 1. Severe lumbar spondylosis, stable from 12/01/2022. 2. Anterior posterior fusion procedures at L4-L5. Reviewed, dictated and finalized at location A.
== END 2023-12-09 13:42 | disposition home or self-care (01) ==
LOC: MICIMG 13:42
PROVIDERS: PCP Neurological Surgery; Visit Provider Neurological Surgery
DX: M43.06 Spondylolysis, lumbar region (principal); Z98.1 Arthrodesis status
CPT/HCPCS: 72158; A9577

== ENCOUNTER 2024-06-10 10:35 | Outpatient (CLI) | payer MEDICARE, SELFPAY ==
--- NOTE | ~2024-06-10 | CT_ITS ---
EXAMINATION: CT lumbar spine wo con DATE: 06/10/2024 12:04 INDICATION: FORAMINAL STENOSIS OF LUMBAR REGION . TECHNIQUE: Computed tomography (CT) of the lumbar spine was performed without intravenous contrast. A utomated exposure control and iterative reconstruction technique were employed. The dose-length produ ct was 668.93 mGy-cm. COMPARISON: MR lumbar spine 06/10/2024. FINDINGS: 5 nonrib-bearing lumbar-type vertebral bodies. Posterior fusion hardware spanning L3-L5. Hardware is intact. Interbody devices at L3-4 and L4-5, in good position. 2 mm retrolisthesis at L1-2. 7 mm retro listhesis at L2-3. 4 mm anterolisthesis at L4-5. Multilevel moderate facet hypertrophy and sclerosis, with overlying bone graft material. Posterior decompression at L3-4 and L4-5. Metal artifact obscure s the central canal at multiple levels. No severe central canal narrowing at the adequately visualize d levels. Mild bilateral neural foraminal narrowing at L2-3. Severe degenerative disc disease at L1-2 and L2-3. Fluid and gas collection in the paraspinal soft tissues at the level of L3-4 and midline s oft tissue changes, likely representing normal postsurgical changes. IMPRESSION: Status post posterior L3-5 fusion with interbody devices at L3-4 and L4-5. Severe degenerative disc disease at L1-2 and L2-3. Multilevel facet arthropathy. Grade 1 retrolistheses at L1-2 and L2-3. Grade 1 anterolisthesis at L4-5. Mild bilateral neural foraminal narrowing at L2-3. No definite severe central canal stenosis noting that multiple levels are obscured by metal artifact Reviewed, dictated and finalized at location K. IMPRESSION: Status post posterior L3-5 fusion with interbody devices at L3-4 and L4-5. Severe degenerative disc disease at L1-2 and L2-3. Multilevel facet arthropathy. Grade 1 retrolistheses at L1-2 and L2-3. Grade 1 anterolisthesis at L4-5. Mild bilateral neural foraminal narrowing at L2-3. No definite severe central canal stenosis noting that multiple levels are obscu red by metal artifact
--- NOTE | ~2024-06-10 | MR_ITS ---
MRI of the lumbar spine Clinical History: Foraminal stenosis Technique: Axial T2-weighted images, and sagittal T1-weighted, T2-weighted, and STIR images were acqu ired. Following intravenous administration of 17 cc ProHance gadolinium, T1-weighted fat-sat imaging was performed in the axial and sagittal planes. COMPARISON: 12/09/2023 Findings: There is posterior and interbody fusion from L3 through L5, with bilateral rods and transpe dicular screws present. There are disc fusion cages at the L3-L4 and L4-L5 disc spaces. There is 9 mm retrolisthesis of L2 over L3. There is 2-3 mm retrolisthesis of L1 over L2. There is minimal grade 1 anterolisthesis of L4 over L5, unchanged. No suspicious or acute bone marrow signal abnormality iden tified. At L1-L2, there is severe degenerative disc narrowing. There is mild facet arthropathy. No central ca nal stenosis or definite neural foraminal narrowing. At L2-L3, there is severe degenerative spurring. There is mild disc bulge with facet arthropathy. Pro bable left hemilaminectomy. No definite central canal stenosis. There is severe right neural foramina l narrowing, and moderate to advanced left neural foraminal narrowing. At L3-L4, there is posterior decompression. No canal stenosis. Probable moderate to severe bilateral neural foraminal narrowing. At L4-L5, there is posterior decompression. No canal stenosis. Probable moderate to severe bilateral neural foraminal narrowing. At L5-S1, there is no spinal canal stenosis or cord compression. There is probable moderate to advanc ed bilateral neural foraminal narrowing. Expected postoperative changes are noted in the posterior paravertebral soft tissues. No abnormal/suspicious postcontrast enhancement identified. Impression: Posterior and interbody fusion from L3 through L5, as detailed above. 9 mm retrolisthesis of L2 over L3. 2-3 mm retrolisthesis of L1 and L2. Moderate to advanced degenerative spondylosis, as above, with diffuse neural foraminal narrowing thro ughout the lumbar spine. No jan central canal stenosis. Reviewed, dictated and finalized at location M. Impression: Posterior and interbody fusion from L3 through L5, as detailed above. 9 mm retrolisthesis of L2 over L3. 2-3 mm retrolisthesis of L1 and L2. Moderate to advanced degenerative spondylosis, as above, with diffuse neural fo raminal narrowing throughout the lumbar spine. No jan central canal stenosis.
--- OUTSIDE RECORDS SUMMARY | 2024-06-10 10:46 | XMS_ITS | Clinical Summary ---
Author Organization [facility] Address [address] [place] [address] Care Team Providers Care Video Coordinator Name Role Phone Unavailable Primary Care Provider Unavailabl e Social History Tobacco Use Types Packs/Day Years Used Date Smoking Tobacco: Never Comments Unknown Sex and Gender Information Value Date Recorded Sex Assigned at Not on file Legal Sex Female 5:42 PM CDT Gender Identity Not on file Sexual Orientation Not on file Last Filed Vital Signs Vital Sign Reading Time Taken Comments Blood Pressure 140/100 11/09/2014 10:06 AM CDT Pulse 80 11/09/2014 10:06 AM CDT Regu lar Temperature - - Respiratory Rate 14 11/09/2014 10:06 AM CDT Oxygen Saturation - - Inhaled Oxygen Concentration - - Weight 79.7 kg (175 lb 9.6 oz) 11/09/2014 10:06 AM CDT Height - - Body Mass Index - - Plan of Treatment Health Maintenance Due Date Last Done Comments Colorectal Cancer Screening Colonoscopy (10 Years) 1953 Hepatitis C 1971 DTaP, Tdap and Td Vaccines ( 1 - Tdap) 02/03/1972 Mammogram Screening 1993 Pneumococcal Vaccine: 50+ Ye ars (1 of 1 - PCV) 2003 Zoster Vaccines (1 of 2) 2003 Dexa Scan (General) 2018 COVID-19 Vaccine ( - 2023-2 5 season) 2023 RSV Immunization or 60+ Years (1 - 1-dose 75+ series) 02/03/2028 Meningococcal B Vaccine Aged Out No l onger eligible based on patient's age to complete this topic Meningococcal Vaccine Aged Out No colby adryan eligible based on patient's age to complete this topic RSV Immunizations Under 20 Months Aged Out No longer eligible based on patient's age to complete this topic
--- OUTSIDE RECORDS SUMMARY | 2024-06-10 10:46 | XMS_ITS | Clinical Summary ---
Author Organization [facility] Address [facility] [place] [address] Care Team Providers Care National Sales Representative Name Role Phone Unavailable Primary Care Provider Unavailabl e Social History Tobacco Use Types Packs/Day Years Used Date Smoking Tobacco: Never Assessed Comments Unknown Sex and Gender Information Value Date Recorded Sex Assigned at Not on file Legal Sex Female 10:37 AM CDT Gender Identity Not on file Sexual Orientation Not on file Plan of Treatment Health Maintenance Due Date Last Done Comments DTAP/TDAP/TD VACCINES (1 - Tdap) 02/03/1972 BREAST CANCER SCREENING 1993 COLORECTAL SCREENING 1998 Colorectal Cancer Screening 1998 FIT-DNA Q 3 years 1998 FIT/FOBT Q 1 year 1998 Flex Sig/CT Colonography Q 5 years 1998 PNEUMOCOCCAL VACCINE 50+ YEARS (1 of 1 - PCV) 02/03/20 03 ZOSTER VACCINE (1 of 2) 2003 OSTEOPOROSIS SCREENING 2018 INFLUENZA VACCINE (#1) 2023 RSV VACCINE (60+ or ) (1 - 1-dose 75+ series) 02/03/2028 Insurance [employer] PPO [facility]
--- OUTSIDE RECORDS SUMMARY | 2024-06-10 10:46 | XMS_ITS | Data Portability ---
Author Organization [facility], [address] [facility] ([place]) Address [address] [place] [address] Care Team Providers Care Skip Locator Name Role Phone LULU JAY Primary Care Provider Assessment Encounter Date Assessment Date Assessment LastModified by Organization Details LastModified Time 10/08/2023 10/08/2023 SUBJECTIVE: She is a 68-year-old female with history of chronic back pain, history of acid reflux disease with Hernadez s esophagus, history of sinus problems who comes in with complaints of having dizzy spells. She went to urgent care and was diagnosed with sinus infection. She was on cefdinir. It caused some GI side effects, so she called our office, and we switched her to doxycycline for 1 week. It helped but she still has problems with a plugged-up sensation in the ear. She also takes Benadryl and Claritin; it helps a little bit, but it does not help with the ear discomfort. She has some phlegm, and it is clear but it continues to bother her a lot. Orthopedic surgeon in [place] recommended to do surgery, insurance did not want to pay for it, so she is still waiting to hear from the orthopedic doctor. No sinus headache, but she does feel some sinus pressure still. Wondering what she should do. She said she will be leaving for a vacation with her family tomorrow. No fever, chills. No ear discharge or drainage. REVIEW OF SYSTEMS: As per HPI. The rest of the 12-system review is negative. OBJECTIVE: CONSTITUTIONAL: She is alert, awake, oriented x3. In no acute distress. Vitals as above. HEENT: No pallor, no icterus, moist mucous membranes. Ears looked okay. Ear drums looked okay bilaterally. No redness, discharge or drainage. No sinus tenderness. NECK: Supple, no lymphadenopathy. LUNGS: Clear. HEART: S1, S2, regular. NEUROLOGIC: Her mental function is intact. Cranial 2 through 12 intact. Romberg sign negative. Gait is normal. PLAN: I believe her symptoms are from eustachian tube dysfunction. I advised her to change from Claritin to Zyrtec. Also, she can try using the Afrin nasal spray for 2 days and then stop. She has been using the Flonase or the steroid nasal spray continuously. It does not seem to be doing much. I put her on prednisone 20 mg twice daily for 5 days, but she will take it only if the symptoms do not improve with the Afrin. I do not think she needs more antibiotics. I will see her back as scheduled or sooner if needed. [place]ver Not available 10/11/2023 08:37:17 10/20/2023 10/20/2023 SUBJECTIVE: She is a 68-year-old female who I saw last week with complaints of eustachian tube dysfunction, who comes in for a follow-up. I saw her on the and she was going to go for a vacation. I did advise her to switch from Claritin to Zyrtec and I gave her prednisone. She said she ended up taking the prednisone for 5 days and she finished taking it about a week ago. It did help the symptoms of her ear, but she still feels some discomfort in the left ear. When she sleeps on it, it hurts more at night. She did not notice any discharge or drainage. Also, switched from Claritin to Zyrtec, she noticed her postnasal drainage has gotten better. She does use the Flonase nasal spray 2 sprays to each nostril once a day. She can hear okay from the left ear. She still has occasional dizziness. She got back from vacation recently. REVIEW OF SYSTEMS: As per HPI. The rest of the 12-system review is negative. OBJECTIVE: CONSTITUTIONAL: She is alert, awake, oriented x3. In no acute distress. Vitals as above. HEENT: No pallor, no icterus, moist mucous membranes. Throat looks clear. Both ears look okay. Left tympanic membrane slightly dull. I believe there is a small amount of fluid behind the tympanic membrane, but no drainage or discharge. No tenderness. No redness. No sinus tenderness. NECK: Supple. No lymphadenopathy. PLAN: I still believe that the symptoms are from eustachian tube dysfunction. I do not think antibiotics would help any. With her history of osteoporosis, I really prefer not to give her more prednisone. Because her symptoms are better than when I saw her last time, I advised her to give it another 7 to 10 days. If she does notice continued improvement, I do not think she needs more prednisone. She will call and let me know next week. I will see her back as scheduled or sooner if needed. dck Not available 10/20/2023 15:09:29 04/26/2024 04/26/2024 69-year-old fema le history of osteoporosis. She received a single dose of Reclast in January 2020 and had significant joint pain and flulike symptoms. We elected not to proceed with any further treatment. Bone density in November demonstrated normal T-score at the distal radius and osteopenia at the hip. The distal radius has remained stable while the hip has decreased by nearly 6%. She has no history of fragility fracture. Estimated fracture risk is still considered elevated. Unfortunately due to her history of Hernadez's esophagus and reaction to Reclast bisphosphonates are not a good option for the patient going forward. Prolia would need to be used lifelong. At this point the patient and I agree to continue conservative management and will recheck a bone density scan in November 2025. Will recheck a vitamin D today. She will continue her current calcium intake with a goal daily intake of 1200 mg/day. Patient will return to clinic after next bone density scan. [email or web address] Not available 04/26/2024 13:06:36 05/04/2024 05/04/2024 Jose Angel is a 69-year-old male who is a patient of Dr. Jay. She is here today to discuss getting scheduled for colonoscopy and EGD. She is due for a colonoscopy for screening purposes and an EGD for surveillance given her history of Hernadez's esophagus. She continues to take her pantoprazole and is doing well. She has no current GI complaints. REVIEW OF SYSTEMS: The patient denies any nausea, vomiting, abdominal pain, rectal bleeding or melena. They also denie any heartburn, dysphagia, odynophagia, fevers or chills. They have not had any unintentional weight loss, or any changes in their appetite. FAMILY HISTORY: She denies a family history of colon cancer. SOCIAL HISTORY: She does not smoke or drink alcohol. PHYSICAL EXAM: General: Patient is well-developed and well-nourished. No acute distress. Neck: Neck is supple. No visible masses no lymphadenopathy. Heart: Heart is regular sinus rhythm. No murmurs heard. Lungs: Lungs are clear to auscultation bilaterally. Respirations unlabored. Abdomen: The abdomen is soft and nontender to palpation. Normal bowel sounds. Extremities: Normal range of motion of the upper and lower extremities. No edema in the lower extremities bilaterally. Skin: Warm and moist. LABORATORY DATA: In August 2020 she had a hemoglobin of 12.5 hematocrit of 38% and MCV of 91. On 10/12/2014July ultrasound of her gallbladder which was negative. October 23, 2014 she had a hemoglobin of 13.3, hematocrit of 40 percent and MCV of 93. She had an AST of 25 and an ALT of 16. PROCEDURAL DATA: Last EGD was in July [address] Eastman which showed continued findings of Hernadez's esophagus. There was no gastric intestinal metaplasia. Her last EGD was in June [address] Dumont. She was found to have an irregular Z-line. Biopsies showed continued findings of Hernadez's esophagus without dysplasia or malignancy. Her last EGD was performed in August [address] Dumont. She was found to have an irregular Z line and mild gastric erythema. Biopsies showed continual findings of Hernadez's esophagus without dysplasia or malignancy. Her last colonoscopy and EGD were completed in October [address] Dumont. Her colonoscopy was a negative colonoscopy except for internal hemorrhoids. Her EGD commented on an irregular Z line and mild gastric erythema. Biopsies from the esophagus commented on hernadez's esophagus without dysplasia or malignancy. The stomach biopsies commented on mild chronic gastritis with focal intestinal metaplasia. IMPRESSION: 1. Barretts esophagus. 2. Gastric biopsies commenting on focal intestinal metaplasia. 3. Screening colonoscopy. PLAN: 1. She is willing to proceed with a colonoscopy and EGD. She does mention that she is scheduled to have a spinal fusion this month and would like to hold off until sometime following that procedure. Will place a task to call her in August discuss getting her scheduled. An explanation of the procedure was provided, risks and benefits of the procedure were explained. Procedural risks that were discussed include; risk of infection, bleeding, perforation or cardiopulmonary issues associated with the sedation itself. The patient also understands that this is an imperfect exam and lesions can be missed. The patient verbalizes understanding and wishes to proceed and they have no further questions at this time. [email or web address] Not available 05/04/2024 15:14:15 Plan of Treatment Reminders Order Date Submit Date Provider Last Modified By Organization Details Last Modified Time Details Appointments Complete Physical Adult 20.EST 2024 10:40A M Dr. Lulu Jay Not available Not available Not available Establis hed Patient 15.EST 2024 10:00A M Dr. Mariana Humphreys Not available Not available Not available Lab vitamin D, 25-hydro xy, total, serum 2024 025 [facility], [facility], [address] [place] [address], [id number], 04/26/2024 19:04:59 surgical patholog y study 2023 024 [facility], [address] [place] [address], [id number], 09/29/2023 18:41:13 Referral None recorded . Procedures None recorded . Surgeries None recorded . Imaging bone density - Please schedule at [place] [facility] 2024 026 [email or web address] [facility], [address] [place] [address], [id number], 04/26/2024 13:05:32 Medication Orders None recorded . Patient TargetsNo targets recorded. Patient InstructionsNo instructions recorded. Reason for Referral None Reported. Results Created Date Observation Date Name Description Value Unit Range Abnormal Flag Note LastModifiedBy Organization Detail LastModifiedTime 09/28/19 24 09/29/2023 surgi anusha patho logy study tissue exam biopsy [facility] [address] [place] [address] [address],[place] [address] Ph. 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 Recei jan in 10% neutr al buffe red forma jj for forma jj-f ixed paraf fin-e mbedd ed secti ons label ed left media l leg is an unori ented 0.8 x 0.7 cm fragm ent of horton- alatorre skin excis ed to a depth of 0.1 cm. There is no defin ite lesio n ident ified gross ly on the skin surfa ce. The speci men is inked , seria lly secti oned, and entir sean submi tted for histo logic study in one casse tte. CLINI ANUSHA INFOR MATIO N: Skin biops y, left media l leg, IK vs NMSC. Not Available [facility] [address] [place] [address], [id number], 09/29/2023 18:41:13 04/27/19 25 04/26/2024 vitam in D, 25-hy droxy , total , serum vitamin D 25-hydroxy totl 63.0 NG/mL 30.0-8 0.0 Less than 20 ng/mL Defic iency 20-29 ng/mL Insuf ficie ncy 30-80 ng/mL Optim al Great er than 80 ng/mL Possi ble toxic ity Not Available [facility] [address] [place] [address], [id number], 04/26/2024 19:04:59 10/06/19 24 07/29/2022 imagi ng/di agnos tic resul t No observ ation record ed. Not Available 10/06/2023 20:39:37 12/07/19 24 12/07/2023 bone densi [facility] [address] [address] Teleph one Name: Jose Angel Ludwig [id number] Exam Date: 2023 Age: 68 Physic harpreet: Cynthia amin APRN, Kevin : 1954 Examin ation: BONE DENSIT Y WITH VERTEB RAL FX ASSESS MENT EXAMIN ATION: BONE DENSIT Y WITH VERTEB RAL FX ASSESS MENT PATIEN T PROVID ED HISTOR Y: Postme nopaus al, screen ing for osteop orosis . Matern al histor y of fractu re, prior histor y of steroi d use. Unable to use Lumbar spine due to metal hardwa re and degene rative change s. COMPAR NEGIN: 022 FINDIN GS: Left forear m: radius 33% T-scor e is -0.5 There is a 1.7% increa se from prior. Hip Total Hip T-scor e is -1.2 There has been a 5.9% decrea se in BMD. Femora l neck T-scor e is -2.0 Review of latera l images for VFA demons trate no gross compre ssion deform ity. IMPRES NAFISA: Low bone mass. Fractu re risk assess ment (FRAX) : 10 year risk for a major osteop orotic fractu re is 27% 10 year risk for a hip fractu re is 8.8% The FRAX tool has not been valida quentin in patien ts curren tly or previo usly treate d with pharma cother apy for osteop orosis . In such patien ts, clinic al judgem ent must be exerci sed in interp reting FRAX scores as the fractu re risk may be overes timate d. Please see PACS for full comput er genera quentin report . Additi onal Clinic al Inform ation: Bone minera l densit y: Normal (T-sco re above or = -1.0) Low bone mass (T-sco re betwee n -1.0 and -2.5) Osteop orosis (T-sco re = or below -2.5) Medica l evalua tion for second roya causes of low bone minera l densit y may be approp riate. FRAX is a World Health Organi zation valida quentin fractu re risk assess ment tool that calcul ates a person 's 10 year probab ility of a major osteop orosis relate d fractu re and hip fractu re. Accord ing to the Nation al Osteop orosis Founda tion guidel alli, postme nopaus al women and men age 50 or older with low bone mass and a 10 year probab ility of a major osteop orosis relate d fractu re = or greate r than 20% or a 10 year probab ility of a hip fractu re = or greate r than 3% should be consid ered for treatm ent. For furthe r inform ation, includ ing treatm ent recomm endati ons, please refer to the 2019 ISCD Offici al Positi ons (http: //www. iscd.o rg) and the NOF's Clinic harpreet's Guide to Preven tion and Treatm ent of Osteop orosis (http: //www. nof.or g/prof maraion als/cl inical -guide lines) Electr onical ly signed in Bailey cribe by: Robbie Arvizu MD on: 4 2:42 PM cc: Page PAGE 1 of [facility] 1 [id number] [facility] [address], [place], [address], 12/10/2023 17:38:48 Result Notes None recorded. Problems Name Problem SNOMED Code Status Onset Date Resolution Date Notes Provider Name and Address Organization Details Recorded Time Acute maxillary sinusitis 74664324 Active 2023 Donnie Howe MD [address] [place] [address], [phone] , [facility] 4 16:22:17 Lentigo - freckle 895415746 Active 2023 [facility] 4 11:51:50 Seborrheic keratosis 168606962 Active 2023 Elenavitaly Alvarado [facility] 4 11:51:58 Neoplasm of uncertain behavior of skin 93630525 Active 2023 Elenavitaly Alvarado [facility] 4 11:52:07 Acute sinusitis 72514021 Active 2023 Aby La null, [facility] 4 11:36:00 Dysfunctio n of eustachian tube 26191248 Active 2023 Aby La null, [facility] 4 16:22:04 Dysfunctio n of left eustachian tube 1401725408923 106 Active 2023 Lulu Jay MD [address] [place] [address], [phone] , [facility] 4 12:53:58 Osteoporos is 64216024 Active 2023 Andrea Dominique er, PUBLICATION EDITOR, DNP, PUBLICATION SPECIALIST [address] [place] [address], [phone] , [facility] 4 16:26:57 Hernadez's esophagus 289253726 Active 2024 Lauren hernandez null, [facility] 5 13:08:33 Problem Notes Documentation Provider Name and Address Organization Details Recorded Time Reed Dipper Consult Note : [facility] [address] [place] [id number] Jose Angel Ludwig 69yo F [id number] #[id number] 05/04/2024 Joelle Jay MD, Jose Angel Ludwig was seen in our office today 05/04/2024, and a copy of that evaluation is enclosed. Thank you for allowing us to participate in the care of your patient. Please contact us with any questions. Sincerely, Electronically Signed by: WINSTON BAXTER PA-C Encounter Reason/Date colonoscopy, medication follow up Followup: Hernadez's esophagus Referring provider:LULU JAY MD Previous history of MRSA :NO Previous history VRE :NO Previous history of Cdiff :NO Previous history of CRE: NO Previous history of ESBL: NO Blood Thinners? NO Dm Meds?NO Latex Allergy? NO Last EGD: 08/05/2021 Last Colon:11/19/2014 05/04/2024 - 01:30PM - [facility] [place])ProblemsReviewed Problems Neoplasm of uncertain behavior of skin - Onset: 09/28/2023 Dysfunction of eustachian tube - Onset: 10/08/2023, Bilateral Acute sinusitis - Onset: 09/30/2023 Acute maxillary sinusitis - Onset: 09/27/2023 Hernadez's esophagus - Onset: 05/03/2024 Seborrheic keratosis - Onset: 09/28/2023 Lentigo - freckle - Onset: 09/28/2023 Osteoporosis - Onset: 05/28/2023 Dysfunction of left eustachian tube - Onset: 10/20/2023 Allergies Reviewed Allergies CODEINE: Nausea - Reaction: Nausea; ERYTHROMYCIN BASE: Nausea - Reaction: Nausea; MORPHINE: Nausea - Reaction: Nausea; Codeine Derivatives (Active): Reaction: Nausea;OnsetDate: 06/25/2011; Medications Reviewed Medications NameDate Source naloxone 4 mg/actuation nasal sprayUSE 1 SPRAY INTRANASALLY ONCE FOR OVERSEDATION, REPEAT IN 2-3 MINUTES IF NEEDED 2 DOSES.11/11/22 filled surescripts oxyCODONE-acetaminophen 5 mg-325 mg tabletTAKE 1 TABLET BY MOUTH THREE TIMES DAILY NEEDED FOR 30 DAYS03/31/24 filled surescripts pantoprazole 40 mg tablet,delayed releaseTAKE 1 TABLET BY MOUTH ONCE DAILY03/06/25 filled surescripts Family HistoryReviewed Family History Mother - Alzheimer's disease - Chronic obstructive pulmonary disease Father - Family history of malignant neoplasm Sister - Chronic obstructive pulmonary disease - Diabetes mellitus - Disorder of thyroid gland Maternal Grandmother - Chronic obstructive pulmonary disease Maternal Grandfather - Cerebrovascular accident Social HistoryReviewed Social History Substance UseWhat is your level of alcohol consumption?: NoneDo you use any illicit or recreational drugs?: NoWhat was the date of your most recent tobacco screening?: 09/28/2023Education and OccupationAre you currently employed?: NoWhat is your occupation?: RetiredAdvance DirectiveDo you have an advance directive?: NoDo you have a medical power of workers compensation defense attorney?: NoAlcohol Use (History): Denied, Type: Unknown Last Edited: 12 Dec 2007 11:51AM Last Reviewed Date: 20071212 Caffeine Use, Type: Unknown Last Edited: 12 Dec 2007 11:51AM Last Reviewed Date: 20071212 Exercising Regularly, Type: Unknown Last Edited: 12 Dec 2007 11:51AM Last Reviewed Date: 20071212 Never a smoker, Last Assessed: 07 Nov 2019 11:10AM Type: Chronic Last Edited: 07 Nov 2019 11:39AM Last Reviewed Date: 20191107 SnomedCode: [id number] LastAssessedBy: DOMENIC ALTAMIRANO No illicit drug use, Type: Chronic Last Edited: 07 Nov 2019 11:17AM Last Reviewed Date: 20191107 SnomedCode: [id number] Sexually active, Type: Chronic Last Edited: 07 Nov 2019 11:17AM Last Reviewed Date: 20191107 SnomedCode: [id number] Surgical HistoryReviewed Surgical & Procedure History Colonoscopy with biopsy - Colonoscopy (camera from below into colon) delivery - Other surgeries: Back surgery 2020; lumbar spine fusion 2022 Derm surgical history 09/17/2021 BCC nodular right superior shoulder C&D'd 11/12/20 BCC Nodular Right Mid Back C&D Other surgeries: Lumbar spine surgery 2020 & spinal fusion L4&5 in 2022 Other surgeries: Surgeries above are incorrect. 1st spine surgery 2020. 2nd spine surgery 2022. 3rd spine surgery scheduled [id number] HistoryNone recordedHistory of Present IllnessNone recordedReview of SystemsNone recordedPhysical ExamNone recordedProcedure DocumentationNone recordedAssessment/PlanJose Angel is a 69-year-old male who is a patient of Dr. Jay. She is here today to discuss getting scheduled for colonoscopy and EGD. She is due for a colonoscopy for screening purposes and an EGD for surveillance given her history of Hernadez's esophagus. She continues to take her pantoprazole and is doing well. She has no current GI complaints. REVIEW OF SYSTEMS: The patient denies any nausea, vomiting, abdominal pain, rectal bleeding or melena. They also denie any heartburn, dysphagia, odynophagia, fevers or chills. They have not had any unintentional weight loss, or any changes in their appetite. FAMILY HISTORY: She denies a family history of colon cancer. SOCIAL HISTORY: She does not smoke or drink alcohol. PHYSICAL EXAM: General: Patient is well-developed and well-nourished. No acute distress. Neck: Neck is supple. No visible masses no lymphadenopathy. Heart: Heart is regular sinus rhythm. No murmurs heard. Lungs: Lungs are clear to auscultation bilaterally. Respirations unlabored. Abdomen: The abdomen is soft and nontender to palpation. Normal bowel sounds. Extremities: Normal range of motion of the upper and lower extremities. No edema in the lower extremities bilaterally. Skin: Warm and moist. LABORATORY DATA: In August 2020 she had a hemoglobin of 12.5 hematocrit of 38% and MCV of 91. On 10/12/2014July ultrasound of her gallbladder which was negative. October 23, 2014 she had a hemoglobin of 13.3, hematocrit of 40 percent and MCV of 93. She had an AST of 25 and an ALT of 16. PROCEDURAL DATA: Last EGD was in July [address] Eastman which showed continued findings of Hernadez's esophagus. There was no gastric intestinal metaplasia. Her last EGD was in June [address] Dumont. She was found to have an irregular Z-line. Biopsies showed continued findings of Hernadez's esophagus without dysplasia or malignancy. Her last EGD was performed in August [address] Dumont. She was found to have an irregular Z line and mild gastric erythema. Biopsies showed continual findings of Hernadez's esophagus without dysplasia or malignancy. Her last colonoscopy and EGD were completed in October [address] Dumont. Her colonoscopy was a negative colonoscopy except for internal hemorrhoids. Her EGD commented on an irregular Z line and mild gastric erythema. Biopsies from the esophagus commented on hernadez's esophagus without dysplasia or malignancy. The stomach biopsies commented on mild chronic gastritis with focal intestinal metaplasia. IMPRESSION: 1. Barretts esophagus. 2. Gastric biopsies commenting on focal intestinal metaplasia.3. Screening colonoscopy. PLAN:1. She is willing to proceed with a colonoscopy and EGD. She does mention that she is scheduled to have a spinal fusion this month and would like to hold off until sometime following that procedure. Will place a task to call her in August discuss getting her scheduled. An explanation of the procedure was provided, risks and benefits of the procedure were explained. Procedural risks that were discussed include; risk of infection, bleeding, perforation or cardiopulmonary issues associated with the sedation itself. The patient also understands that this is an imperfect exam and lesions can be missed. The patient verbalizes understanding and wishes to proceed and they have no further questions at this time. 1.Hernadez's esophagus without grzzpnzbyL91.70: Hernadez's esophagus without dysplasia 2.Colon cancer kfhbkisvfE17.11: Encounter for screening for malignant neoplasm of colon Return to Office Lulu Jay MD for Complete Physical Adult 20.EST at [address] [facility] ([place]) on 06/30/2024 at 10:40 AM Mariana Humphreys MD for Established Patient 15.EST at [address] ([place]) on 10/03/2024 at 10:00 AM Lulu Jay MD [facility] [place], [place] [address], [id number], [facility] 05/05/2024 13:52:36 Procedures Surgical History Date Name Laterality Status Provider Name and Address Organization Details Recorded Time delivery completed Not Available Health Note 09/22/2023 12:34:41 Colonoscopy with biopsy completed Not Available Health Note 09/22/2023 12:34:41 Imaging Results Imaging Date Name Status LastModified by Organiz ation Details LastModified Time 07/29/2022 imaging/diag nostic result completed Information not available 10/06/2023 20:39:37 12/07/2023 bone density completed [id number] [facility] [facility] [address] [place] [address], [id number], 12/10/2023 17:38:48 Procedure Notes None recorded. Medical Equipment None Reported. Allergies Allergen ID Allergen Name Allergen Category Reaction Reaction Severity Criticality Documentation Date Start Date Code Code System Note Provider Name and Address Organization Details Recorded Time 111386 erythromy yoav medicatio n nausea Not available Not available 03/22/20232006 4053 RxNorm React ion: Nause a; Not Available Not Available Not Available 798638 codeine medicatio n nausea Not available Not available 03/22/20232011 2670 RxNorm React ion: Nause a; Not Available Not Available Not Available 627411 morphine sulfate medicatio n nausea Not available Not available 03/22/20232014 27525 RxNorm React ion: Nause a; Not Available Not Available Not Available Medications Name Sig Start Date Stop Date Status Note LastModified by Organization Details LastModified Time hydrocodo ne 5 mg-acetam inophen 325 mg tablet TAKE 1 TO 1 & 1/2 (ONE & ONE-HALF ) TABLETS BY MOUTH TWICE DAILY NEEDED 09/27 completed Not Available Not Available Not Available prednison e 20 mg tablet one tablet daily for 5 days 10/19 completed Not Available Not Available Not Available oxycodone -acetamin ophen 5 mg-325 mg tablet TAKE 1 TABLET BY MOUTH THREE TIMES DAILY NEEDED FOR 30 DAYS active Not Available Not Available No t Available hydrocodo ne 7.5 mg-acetam inophen 325 mg tablet TAKE 1 TABLET BY MOUTH TWICE DAILY NEEDED 04/26 completed Not Available Not Available Not Available pantopraz ole 40 mg tablet,de layed release Take 1 tablet by mouth once daily 2024 active GI/Kocha r last seen 04/2024 refill approved Not Available Not Available Not Available oxycodone -acetamin ophen 7.5 mg-325 mg tablet TAKE 1 TABLET BY MOUTH THREE TIMES DAILY NEEDED 05/04 completed Not Available Not Available Not Available cefdinir 300 mg capsule Take 2 capsules every day by oral route for 10 days. 09/29 completed Not Available Not Available Not Available doxycycli ne hyclate 100 mg tablet Take 1 tablet twice a day by oral route for 7 days. 10/07 completed Not Available Not Available Not Available amoxicill in 875 mg-potass ium clavulana te 125 mg tablet TAKE 1 TABLET BY MOUTH TWICE DAILY FOR 7 DAYS 09/26 completed Not Available Not Available Not Available naloxone 4 mg/actuat ion nasal spray USE 1 SPRAY INTRANAS ALLY ONCE FOR OVERSEDA TION, REPEAT IN 2-3 MINUTES IF NEEDED 2 DOSES. active Not Available Not Available No t Available Vitals Date Recorded Body weight Body mass index (BMI) Body height Provider Name and Address Organization Details Last Updated DateTime 09/28/2023 61254.06 g 32 kg/m2 160.02 cm Paty Roque [facility] 09/28/2023 11:38:29 Date Recorded Body height Body mass index (BMI) Body weight Heart rate Oxygen saturation Oxygen saturation in Arterial blood by Pulse oximetry Body temperature Systolic blood pressure Diastolic blood pressure Provider Name and Address Organization Details Last Updated DateTime 4 160.02 cm 32.1 kg/m2 32478.3 2 g 86 /min 96 % 96 % 99 [degF] 126 mm[Hg] 92 mm[Hg] Page [facility] 4 15:48:47 Date Recorded Body height Body mass index (BMI) Body weight Heart rate Systolic blood pressure Diastolic blood pressure Provider Name and Address Organization Details Last Updated DateTime 5 160.02 cm 31.7 kg/m2 17041.0 3 g 84 /min 126 mm[Hg] 76 mm[Hg] Jazmin Claudia [facility] 5 12:06:55 Date Recorded Body height Body mass index (BMI) Body weight Heart rate Oxygen saturation Oxygen saturation in Arterial blood by Pulse oximetry Systolic blood pressure Diastolic blood pressure Provider Name and Address Organization Details Last Updated DateTime 5 160.02 cm 31.5 kg/m2 16969.4 4 g 73 /min 97 % 97 % 130 mm[Hg] 86 mm[Hg] Lauren Estrada [facility] 5 14:48:43 Social History Question Answer Notes LastModified by Organizat ion Details LastModified Time Do You Have An Advance Directive? No [email or web address] Information not available 09/22/2023 What Is Your Level Of Alcohol Consumption? None [email or web address] Information not available 09/22/2023 What Is Your Level Of Caffeine Consumption? Moderate [email or web address] Information not available 09/22/2023 Are You Currently Employed? No [email or web address] Information not available 09/22/2023 What Is Your Occupation? Retired [email or web address] Information not available 09/22/2023 How Many Times Per Week Do You Exercise? Less Than 1 Time Per Week [email or web address] Information not available 09/22/2023 Do You Have A Medical Power Of Parts Cleaner? No [email or web address] Information not available 09/22/2023 What Was The Date Of Your Most Recent Tobacco Screening? 09/28/2023 [email or web address] Information not available 09/22/2023 What Is Your Relationship Status? [email or web address] Information not available 09/22/2023 Do You Use Any Illicit Or Recreational Drugs? No [email or web address] Information not available 09/22/2023 Sex: Unknown Functional Status Question Answer Note LastModified by Organizat ion Details LastModified Time What is your exercise level? Occasional [email or web address] Information not available 09/22/2023 Mental Status None recorded. Family History Relationship Description Onset Age of this Age Resolved Age Notes LastModified by Organization Details LastModified Time Mother Alzheimer's disease [email or web address] Not available 2023 12:34:40 Mother Chronic obstructive pulmonary disease [email or web address] Not available 2023 12:34:41 Father Family history of malignant neoplasm [email or web address] Not available 2023 12:34:41 Sister Chronic obstructive pulmonary disease [email or web address] Not available 2023 12:34:41 Sister Diabetes mellitus [email or web address] Not available 2023 12:34:41 Sister Disorder of thyroid gland [email or web address] Not available 2023 12:34:41 Maternal Grandmother Chronic obstructive pulmonary disease [email or web address] Not available 2023 17:07:39 Maternal Grandfather Cerebrovascu lar accident [email or web address] Not available 10/2023 17:07:39 Medical History Condition Response Diabetes N Anxiety Disorder N Bleeding Disorder N Attention-deficit Hyperactivity Disorder N High Blood Pressure N Arthritis Y Hyperlipidemia N Cancer N Stroke N Thyroid Problems N Asthma N Depression N COPD N Anemia N Seizures N Heart Disease N Fibromyalgia N Osteoporosis Y Kidney Disease N Gynecological HistoryNo gynecological history recorded. Obstetrics History GPAL:G 0 P 0 0 0 0 Past Encounters Encounter ID Performer Location Encounter Start Date Encounter Closed Date Diagnosis/Indication Diagnosis SNOMED-CT Code Diagnosis ICD10 Code Diagnosis Note [id number] Donnie Howe MD [facility] [place] [address] [place] [address] 09/27/2023 15:50:28 09/27/2023 16:25:14 Acute maxillary sinusitis 89907462 J01.00 [id number] Mariana Humphreys MD [facility] ([place]) [address] [place] [address] 09/28/2023 11:33:51 09/28/2023 12:17:24 Lentigo - freckle 295228826 L81.4 We discussed the fact that lentigines are actinicall y induced and that they are benign. We discussed the fact that they should be watched carefully for change.We discussed the importance of photoprote ction using protective clothing and sunscreen with SPF thirty or higher on a regular basis. Seborrheic keratosis 394 052927 L82.1 Seborrheic keratoses, hemangioma s: We discussed the fact that these are benign lesions requiring no treatment. The patient was advised that more such lesions may develop. The patient is not bothered by the lesions and does not wish to have them treated. We will observe. 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 I suggested we take a biopsy. The risks and benefits of the procedure, the risks and benefits of alternativ e procedures , as well as the possible consequenc es of not undergoing the procedure were discussed. The patient verbalized understand ing and gives consent to proceed. {{I took a tangential biopsy.* T he lesion was sampled. T he lesion was removed.}} {{The lesion was treated with curettage and electrodes iccation. Postop defect size: * cm. The lesion was treated with curettage and electrodes iccation. Postop defect size: 1.2 x 0.8 cm.#}}See scanned dermatolog y biopsy record. I asked the pt to return in 1 year. They were instructed to call with any questions or concerns in the meantime. [id number] Lulu Jay MD [address] [facility] ([place]) [address] [facility],[address] [place] [phone] 10/08/2023 15:20:40 10/08/2023 16:30:12 Dysfunction of eustachian tube 23029469 H68.216 [id number] Lulu Jay MD [address] [facility] [place]) [address] [facility],[address] [place] [address] 10/20/2023 11:26:55 10/20/2023 12:01:03 Dysfunction of left eustachian tube 0587266966 708788 H69.92 [id number] Andrea Dominique er, PUBLICATION EDITOR, DNP, PUBLICATION SPECIALIST [facility] ([place]) [address] [place] [address] 04/26/2024 11:49:58 04/26/2024 12:48:53 Osteoporosis 69431675 M81.0 [id number] Winston Baxter PA-C [facility] ([place]) [address] [place] [address] 05/04/2024 14:15:52 05/04/2024 15:38:07 Hernadez's esophagus 558506524 K22.70 Screening for malignant neoplasm of colon 428546807 Z12.11 Health Concerns Section Related Observation LastModified by Organization Detai ls LastModified Time None Recorded Concern Status LastModified by Organization Details LastModified Time None Recorded Advance Directives Directive N: Payers Encounter Date Sequence Insurance Name Policy Number Policy Parsons Covered Member ID Parsons Member ID Guarantor Name 09/28/2023 1 [employer] (MEDICARE REPLACEMENT PPO) [id number] Jose Angel Ludwig [id number] Jose Angel Ludwig 10/08/2023 1 [employer] (MEDICARE REPLACEMENT PPO) [id number] Jose Angel Ludwig [id number] Jose Angel Ludwig 10/20/2023 1 [employer] (MEDICARE REPLACEMENT PPO) [id number] Jose Angel Ludwig [id number] Jose Angel Ludwig 04/26/2024 1 [place] Jose Angel Ludwig [id number] Jose Angel Ludwig 04/26/2024 2 [place] [id number] Jose Angel Ludwig [id number] Jose Angel Ludwig 05/04/2024 1 [place] Jose Angel Ludwig [id number] Jose Angel Ludwig 05/04/2024 2 [place] [id number] Jose Angel Ludwig [id number] Jose Angel Ludwig Notes Date Note Type Note Provider Name and Address Organization Details Recorded Time 4 text/html {{EPV NPV- Refer to Dermatology Pratient History form in the EHR, that has been reviewed and signed. Please refer to this form for Past Medical History, Family History and adiitional Social History. EPV/NPV - Refer to Dermatology Patient History form in the HER that has been reviewed and signed. Please refer to this form for Past Medical History, Family History, and additional Social History. EPV 24#}}Date last seen: 09/22/22 Patient presents today for a: {{3 month recheck of skin cancer 6 month recheck of skin cancer 1 year recheck of skin cancer*}} Recently treated lesion(s): {{No See past/med surg*}} History of actinic keratoses previously treated: {{Yes No*}} New/changing lesions (location): No Regular use of sunscreen with SPF 15 or greater: {{Yes* No}}Regular use of protective clothing: {{Yes* No}}Regular performance of self skin examinations: {{Yes* No}}Family history of melanoma: {{Yes No*}}Major change in health status since last visit: {{Yes No Back pain#}} Mariana Humphreys MD [address] [place] [address], [phone], [facility] 09/28/2023 13:11:18 4 text/html Jose Angel Ludwigis a 68 year oldfemalepresenting for care. Lulu Jay MD [address] [place], [address], [place] [facility] 10/11/2023 19:53:10 5 text/html Ms. Ludwig is a 69-year-old female who presents for follow-up of osteoporosis. Patient is currently on a drug holiday after 1 dose of Reclast. She received her first IV Reclast infusion on February 19, 2020. On the day after the infusion she woke up with flulike symptoms and a low-grade fever which is consistent with acute phase reaction. On 02/26/2020 she developed symptoms of joint pain in her hands. She was evaluated in urgent care and prescribed meloxicam. Patient completed a bone density scan in November 2023. Left forearm: radius 33% T-score is -0.5There is a 1.7% increase from prior.HipTotal Hip T-score is -1.2There has been a 5.9% decrease in BMD.Femoral neck T-score is -2.0Review of lateral images for VFA demonstrate no gross compression deformity. Patient does not have any history of fragility fracture. Patient had L4 and L5 laminotomies in August 2020. She had a second spinal surgery on 03/30/22. No history of parathyroid disease No history of thyroid disease No history of celiac disease No history of seizure disorder No cancer history No history of radiation therapy No aromatase inhibitor use No history of early menopause No weight changes No chronic diarrhea No history of kidney stones No balance problems No history of irregular heart rhythm History of GERD/Hernadez's esophagus Proton pump inhibitor use No history of RA Chronic glucocorticoid use starting in her late 20s to her 40s for retinal issues. She is no longer taking prednisone. Family History: Mother had a hip fracture in her late 70s. Social history: Denies smoking history. Current estimated calcium intake from diet is 450mg. She takes a calcium citrate supplement 630 mg daily it includes 500 units of vitamin D. She takes a multivitamin with 300 mg of calcium and 1000 units of vitamin D. Osteobiflex 2000IU D Exercise: Reports regular weightbearing exercise. No falls in the past year. Reports regular dental examination. The patient does not report any dental issues and does not have any dental procedures planned. Andrea Ha, PUBLICATION EDITOR, DNP, PUBLICATION SPECIALIST [address], [place], [address], [place] [facility] 04/26/2024 13:06:42 OBGyn Episode No OBEpisode recorded.
--- OUTSIDE RECORDS SUMMARY | 2024-06-10 10:46 | XMS_ITS | Encounter Summary ---
Author Organization [facility] Address [address] [place] [address] Care Team Providers Care Stock Wetter Name Role Phone Unavailable Primary Care Provider Unavailabl e Encounter Details Date Type Department Care Team (Late st Contact Info) Description 05/08/2017 Abstract [facility] CONVERSION [address] [place] [address] , Generic Conversion, Social History Tobacco Use Types Packs/Day Years Used Date Smoking Tobacco: Never Comments Unknown Sex and Gender Information Value Date Recorded Sex Assigned at Not on file Legal Sex Female 5:42 PM CDT Gender Identity Not on file Sexual Orientation Not on file documented as of this encounter Plan of Treatment Not on file documented as of this encounter Visit Diagnoses Not on filedocumented in this encounter
== END 2024-06-10 10:36 | disposition home or self-care (01) ==
PROVIDERS: Visit Provider Neurological Surgery
DX: M48.061 Spinal stenosis, lumbar region without neurogenic claudication (principal); Z98.1 Arthrodesis status; M51.369 Other intervertebral disc degeneration, lumbar region without mention of lumbar back pain or lower extremity pain
CPT/HCPCS: 72131; 72158; A9579